=== PATIENT | male | born 1980 | race African-American/Black ===

== ENCOUNTER 2017-02-25 00:35 | Emergency (ER) | payer SELFPAY ==
[~2017-02-25] VITALS: Ht 182.9 cm; Wt 90.7 kg
[2017-02-25] MEDS ORDERED: CLINDAMYCIN 900 MG/6 ML VIAL ONE (01:45)
[2017-02-25] MEDS ORDERED: DEXAMETHASONE SOD PHOSPHATE 10 MG/ML VIAL ONE (01:45)
[2017-02-25] MEDS ORDERED: KETOROLAC TROMETHAMINE INJ 30 MG/ML VIAL ONE (01:46)
--- NOTE | 2017-02-25 01:57 | NUR ---
medicated pt as ordered
[2017-02-25] MEDS ORDERED: IV NS 0.9% 1,000 ML BAG IV ONE (02:00)
[2017-02-25] MEDS ORDERED: DEXAMETHASONE SOD PHOSPHATE 10 MG/ML VIAL IV ONE (02:00)
[2017-02-25] MEDS ORDERED: KETOROLAC TROMETHAMINE INJ 30 MG/ML VIAL IV ONE (02:00)
[2017-02-25] MEDS ORDERED: CLINDAMYCIN 900 MG in IV D5W 100 ML IV ONE (02:00)
--- NOTE | 2017-02-25 04:27 | NUR ---
IV removed. Catheter intact and site benign. Pressure and 4x4 applied to site. No bleeding noted. Patient discharged to home in stable condition. Written and verbal after care instructions given. Patient verbalizes understanding of instruction. ambulatory with a steady gait noted. pt aaox4 no acute distress noted, resp even and unlabored.
[2017-02-25 04:29] VITALS: BP 129/76
== END 2017-02-25 04:30 | disposition home or self-care (01) ==
LOC: ER 00:38
DX: J36 Peritonsillar abscess (principal)
CPT/HCPCS: 96365; 96375; 99284; A4606; J1100; J1885; J3490 ×2; J7030; J7060 ×2; Z7610

== ENCOUNTER 2018-10-17 19:43 | Emergency (ER) | payer SELFPAY ==
[~2018-10-17] VITALS: Ht 182.9 cm; Wt 90.7 kg
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
[2018-10-17] MEDS ORDERED: TDAP [DIPH/PERTUSSIS/TET] 0.5 ML VIAL IM ONE ×2 (20:00)
[2018-10-17] MEDS ORDERED: BUPIVACAINE 0.5 % PF 150 MG/30 ML VIAL ONE (20:08)
[2018-10-17] MEDS ORDERED: ACETAMINOPHEN ES 500 MG TABLET ONE (20:09)
--- NOTE | 2018-10-17 20:20 | NUR ---
XRAY AT BEDSIDE.
[2018-10-17] MEDS ORDERED: ACETAMINOPHEN ES 500 MG TABLET PO ONE (20:30)
[2018-10-17] MEDS ORDERED: BUPIVACAINE 0.5 % PF 150 MG/30 ML VIAL IJ ONE (20:30)
--- NOTE | 2018-10-17 21:45 | NUR ---
PA AT BEDSIDE FOR LACERATION REPAIR.
[2018-10-18 00:47] VITALS: BP 135/90
--- NOTE | 2018-10-18 00:47 | NUR ---
Patient discharged to home in stable condition. Written and verbal after care instructions given. Patient verbalizes understanding of instruction.
== END 2018-10-18 00:52 | disposition home or self-care (01) ==
LOC: ER 19:46
DX: S61.214A Laceration without foreign body of right ring finger without damage to nail, initial encounter (principal); Z60.2 Problems related to living alone; W26.8XXA Contact with other sharp object(s), not elsewhere classified, initial encounter; Y93.89 Activity, other specified; Y92.89 Other specified places as the place of occurrence of the external cause; Y99.8 Other external cause status
CPT/HCPCS: 12004; 73120; 90471; 90715; 99284; A6402; A6403 ×2; J3490

== ENCOUNTER 2018-11-13 20:07 | Emergency (ER) | payer SELFPAY ==
[~2018-11-13] VITALS: Ht 182.9 cm; Wt 86.2 kg
[2018-11-13 20:21] VITALS: BP 145/88
[2018-11-13] MEDS ORDERED: LIDOCAINE HCL/MPF 1% 30 ML VIAL IJ ONE (20:39)
[2018-11-13] MEDS ORDERED: LIDOCAINE HCL/PF 1% 30 ML VIAL TP ONE (21:00)
[2018-11-13] MEDS ORDERED: BACITRACIN ZINC OINT PACKET 1 EA PACKET TP ONE (21:30)
== END 2018-11-13 21:24 | disposition home or self-care (01) ==
LOC: ER 20:09
DX: Z48.01 Encounter for change or removal of surgical wound dressing (principal); L08.9 Local infection of the skin and subcutaneous tissue, unspecified; Z60.2 Problems related to living alone
CPT/HCPCS: 99283; J3490 ×2

== ENCOUNTER 2021-07-05 03:28 | Emergency (ER) | payer OTHER ==
[~2021-07-05] VITALS: Ht 182.9 cm; Wt 90.7 kg
[2021-07-05 03:35] VITALS: BP 157/90
[2021-07-05] MEDS ORDERED: KETOROLAC TROMETHAMINE INJ 30 MG/ML VIAL ONE (04:06)
[2021-07-05] MEDS ORDERED: HYDROCODONE/APAP 5/325MG TABLET ONE (04:06)
[2021-07-05] MEDS: HYDROCODONE/APAP 5/325MG TABLET PO ONE (04:11)
[2021-07-05] MEDS: KETOROLAC TROMETHAMINE INJ 30 MG/ML VIAL IM ONE (04:11)
[2021-07-05] MEDS ORDERED: IBUP-1957 PO (04:57)
[2021-07-05] MEDS ORDERED: HYDR-4209 PO (04:57)
== END 2021-07-05 05:17 | disposition home or self-care (01) ==
LOC: ER 03:33
DX: K08.89 Other specified disorders of teeth and supporting structures (principal); R51.9 Headache, unspecified; Z60.2 Problems related to living alone
CPT/HCPCS: 96372; 99283; J1885